=== PATIENT | female | born 1925 | race Caucasian/White ===

== ENCOUNTER 2016-05-24 12:34 | Inpatient (IN) | payer MEDICARE ==
[~2016-05-24] VITALS: Ht 152.4 cm; Wt 52.7 kg
--- NOTE | 2016-05-24 12:40 | NUR ---
PT ARRIVES TO ED IN STABLE CONDITION VIA EMS. PT ALERT AND ORIENTED TO SELF AND PLACE BUT NOT TIME, REPEATEDLY ASKING, "WHAT HAPPENED? DID I PASS OUT OR SOMETHING?". DR KENNEY NOTIFIED OF PT STATUS.
[2016-05-24 13:19] LABS: HEMATOCRIT 37.6 % (37.0-47.0); HEMOGLOBIN 12.7 g/dl (12.0-16.0); IMMATURE GRANULOCYTES 0.2 % (0.0-1.0); MEAN CELL VOLUME 86.2 fL CALC (80.0-100.0); MEAN CORPUSCULAR HGB 29.1 pG CALC (26.0-32.0); MEAN CORPUSCULAR HGB CONC 33.8 g/L CALC (32.0-36.0); NEUT# 3.19 thou/uL (2.00-7.15); RED BLOOD COUNT 4.36 mill/uL (4.20-5.60); RED CELL DISTRI WIDTH 13.1 % (11.5-15.5)
[2016-05-24 13:32] LABS: ALBUMIN 4.4 g/dL (3.2-5.0); ALKALINE PHOSPHATASE 89 u/l (38-126); ANION GAP 18 (6-22 (CALC)); BILIRUBIN, TOTAL 1.2 mg/dL (0.0-1.4); BUN 15 mg/dL (8-23); BUN/CREATININE RATIO 15 (12-20 (CALC)); CALCIUM 9.2 mg/dL (8.4-10.2); CARBON DIOXIDE 23 mmol/l (22-30); CHLORIDE 102 mmol/l (95-108); GFR 52 ML/MIN (>=60 (CALC)); GFR FOR AFR.AMER. > 60 ML/MIN (>=60 (CALC)); GLUCOSE 138 mg/dL (82-115); POTASSIUM 3.7 mmol/l (3.5-5.1); SGOT/AST 20 u/l (9-36); SGPT/ALT 30 u/l (11-66); SODIUM 140 mmol/l (137-146); TOTAL PROTEIN 7.8 g/dL (6.3-8.2)
[2016-05-24 13:44] LABS: MYOGLOBIN 34 ng/mL (0 - 62)
--- NOTE | 2016-05-24 14:03 | NUR ---
PATIENT RESTING AWAITING RESULKTS FROM RADIOLOGY AND LAB PATIENT DENIES ANY PAIN AT THIS TIME
--- NOTE | 2016-05-24 15:03 | NUR ---
NATALYAR PRINTED TO [id number] AT [id number]
--- NOTE | 2016-05-24 16:01 | NUR ---
REPORT CALLED TO MED SURG
--- NOTE | 2016-05-24 16:10 | NUR ---
PT ARRIVED TO FLOOR AT THIS TIME VIA [facility] ACCOMPANIED BY MOI PERRY; PT AMB TO SCALE AND TO BED WITH STEADY GAIT; PT ORIENTED TO ROOM AND CALL LIGHT SYSTEM; ASSESSMENT COMPLETED AT THIS TIME; PT ORIENTED X3; POOR HISTORIAN FOR MEDICAL HX; SPOUSE AT BEDSIDE; PT DENIES ANY PAIN, DISCOMFORT OR DIZZINESS AT THIS TIME; BED ALARM IN PLACE FOR PT SAFETY; #20 EMS TO RAC FLUSHED; SITE APPEARS HEALTHY; PT DENIES ANY OTHER NEEDS AT THIS TIME; TELE IN PLACE; CALL LIGHT WITHIN REACH; WILL CONTINUE TO MONITOR
[2016-05-24 16:24] VITALS: BP 164/72
--- NOTE | 2016-05-24 19:00 | NUR ---
PT. IS ASSISTED TO THE BATHROOM AND BACK INTO BED WITH MINIMAL ASSISTANCE. PT. REPORTS VERY MINIMAL DIZZINESS WITH AMBULATION. ASSESSMENT COMPLETED. IV SITE PATENT AND INFUSING ORDERED IVF @75ML/HR. BED ALARM REATTACHED FOR SAFETY PRECAUTIONS. PT. ENCOURAGED TO USE CALL FOR ALL NEEDS AND EVERYTIME FOR OOB NEEDS, VERBALIZES UNDERSTANDING. CALL LIGHT IS IN REACH. WILL CONTINUE TO MONITOR.
[2016-05-24 19:47] VITALS: BP 137/69
[2016-05-24 23:38] VITALS: BP 125/76
--- NOTE | 2016-05-24 23:40 | NUR ---
PT. IS RESTING IN BED WITH NO DISTRESS NOTED. VSS. ASSISTED PT. TO THE BATHROOM AND BACK INTO BED. SCHED MED GIVEN. UA OBTAINED PER ORDER. CALL LIGHT IS IN REACH. BED ALARM REPLACED.
[2016-05-25] VITALS (8 sets, daily range): BP systolic 120–153; BP diastolic 59–79
[2016-05-25 00:14] LABS: URINE BILIRUBIN - DIPSTICK NEGATIVE (NEGATIVE); URINE BLOOD DIPSTICK TRACE-INTACT (NEGATIVE); URINE CLARITY CLEAR; URINE COLOR YELLOW; URINE GLUCOSE - DIPSTICK NEGATIVE (NEGATIVE); URINE KETONE NEGATIVE (NEGATIVE); URINE NITRITE - DIPSTICK NEGATIVE (Negative); URINE PROTEIN - DIPSTICK NEGATIVE (NEG-TRACE)
[2016-05-25 00:19] LABS: BARBITURATES NEGATIVE (NEGATIVE); COCAINE NEGATIVE (NEGATIVE); METHADONE NEGATIVE (NEGATIVE); OXCYCODONE NEGATIVE (NEGATIVE); TETRAHYDROCANNABIONOL NEGATIVE (NEGATIVE); TRICYLIC ANTIDEPRESSANTS NEGATIVE (NEGATIVE)
[2016-05-25 00:25] LABS: URINE LEUK ESTERASE SMALL (NEGATIVE)
[2016-05-25 00:26] LABS: URINE SQUAMOUS EPITHELIAL CELL RARE EPI/hpf (0-FEW)
--- NOTE | 2016-05-25 03:20 | NUR ---
PT. HAD WOKE UP AND FORGET HOW SHE GOT TO THE HOSPITAL AND WHY, PT. REORIENTED EASILY. PT. REPORTS IT IS NOT ABNORMAL FOR HER TO BE FORGETFUL AT NIGHT. VS OBTAINED. BED ALARM IN PLACE. CALL LIGHT IS IN REACH. WILL CONTINUE TO MONITOR.
[2016-05-25 05:39] LABS: ANION GAP 15 (6-22 (CALC)); BUN 12 mg/dL (8-23); BUN/CREATININE RATIO 14 (12-20 (CALC)); CALCIUM 9.1 mg/dL (8.4-10.2); CARBON DIOXIDE 26 mmol/l (22-30); CHLORIDE 106 mmol/l (95-108); CREATININE 0.8 mg/dL (0.5-1.0); GFR > 60 ML/MIN (>=60 (CALC)); GFR FOR AFR.AMER. > 60 ML/MIN (>=60 (CALC)); GLUCOSE 167 mg/dL (82-115); MAGNESIUM 1.9 mg/dL (1.6-2.3); POTASSIUM 4.5 mmol/l (3.5-5.1); SODIUM 143 mmol/l (137-146)
--- NOTE | 2016-05-25 07:07 | NUR ---
REPORT RECIEVED FROM MOI ROJAS; PT RESTING IN BED WITH EYES CLOSED; NO S/S OF DISTRESS NOTED; FALL PRECAUTIONS IN PLACE; BED ALARM IN PLACE FOR PT SAFETY; CALL LIGHT WITHIN REACH; WILL CONTINUE TO MONITOR
--- NOTE | 2016-05-25 12:34 | NUR ---
PT SITTING UP IN BED FOR LUNCH; NO S/S OF DISTRESS NOTED; SPOUSE AT BEDSIDE; PT DENIES ANY DIZZINESS AT THIS TIME; PT ENCOURAGED TO CALL FOR ASSISTANCE; CALL LIGHT WITHIN REACH; WILL CONTINUE TO MONITOR
--- NOTE | 2016-05-25 15:46 | NUR ---
PT RESTING IN BED WITH EYES CLOSED; NO S/S OF DISTRESS NOTED; TELE IN PLACE; CALL LIGHT WITHIN REACH; WILL CONTINUE TO MONITOR
--- NOTE | 2016-05-25 20:00 | NUR ---
PT RESTING IN SEMI FOWLERS POSITION;PT DENIES ANY PAIN OR DISCOMFORTS;ASSESSMENT COMPLETED;EMS IV SITE TO RFA FLUSHED AND PATENT;PT EDUCATED ON THE EXPIRATION DATE OF EMS SITES AND AGREES TO HAVE SITE CHANGED IN THE MORNING;PT A&O X3;TELE MONITOR IN PLACE READING SR 88;SKIN INTACT;PT REFUSED TEDS AT THIS TIME;PT RE-ORIENTED TO ROOM AND CALL LIGHT SYSTEM AND VERBALIZES UNDERSTANDING;BED ALARM ON;SAFETY PRECAUTIONS REINFORCED;PT DENIES ANY OTHER NEEDS AT THIS TIME;BED IN LOWEST POSITION WITH CALL LIGHT IN REACH;WILL CONTINUE TO MONITOR
--- NOTE | 2016-05-26 00:15 | NUR ---
PT APPEARS TO BE SLEEPING AT THIS TIME;NO S/S OF DISTRESS NOTED;RESPIRATIONS EVEN AND UNLABORED ON RA;TELE MONITOR IN PLACE;BED ALARM ON AND COMMODE AT BEDSIDE;CALL LIGHT WITHIN REACH;WILL CONTINUE TO MONITOR
[2016-05-26 00:25] VITALS: BP 136/62
[2016-05-26 04:40] VITALS: BP 146/77
--- NOTE | 2016-05-26 05:25 | NUR ---
PT RESTING IN SUPINE POSITION;EMS SITE TO RFA REMOVED WITH CATHETER INTACT DUE TO EXPIRATION DATE;NEW #20 STARTED TO RIGHT HAND;FLUSHED AND PATENT;PT DENIES ANY OTHER NEEDS AT THIS TIME;PT TOLD TO CALL FOR ASSISTANCE IF NEEDED;BED IN LOWEST POSITION WITH CALL LIGHT IN REACH;WILL CONTINUE TO MONITOR
[2016-05-26 05:51] LABS: ANION GAP 11 (6-22 (CALC)); BUN 14 mg/dL (8-23); BUN/CREATININE RATIO 20 (12-20 (CALC)); CALCIUM 7.2 mg/dL (8.4-10.2); CALCULATED LDLCHOLESTEROL 61 mg/dL (62-129 (CALC)); CARBON DIOXIDE 21 mmol/l (22-30); CHLORIDE 113 mmol/l (95-108); CREATININE 0.7 mg/dL (0.5-1.0); GFR > 60 ML/MIN (>=60 (CALC)); GFR FOR AFR.AMER. > 60 ML/MIN (>=60 (CALC)); GLUCOSE 98 mg/dL (82-115); HDL CHOLESTEROL 42 mg/dL (>=40); POTASSIUM 3.1 mmol/l (3.5-5.1); SODIUM 142 mmol/l (137-146); TOTAL CHOLESTEROL 114 mg/dl (0-199); TOTAL TRIGLYCERIDES 55 mg/dl (30-149); VLDL CHOLESTROL 11 mg/dl (0-48 (CALC))
--- NOTE | 2016-05-26 08:17 | NUR ---
PHYSICAL THERAPY IN WITH PT
[2016-05-26 08:56] VITALS: BP 154/54
--- NOTE | 2016-05-26 09:54 | NUR ---
DR. CUTLER IN TO SEE PT; PLAN OF CARE DISCUSSED
--- NOTE | 2016-05-26 13:00 | NUR ---
PT SITTING IN CHAIR VISITING WITH SPOUSE; STATES SHE FEELS BETTER AND WOULD LIKE TO GO HOME; WILL NOTIFY MD; CALL ALTMAN WITHIN REACH; WILL CONTINUE TO MONITOR.
[2016-05-26 13:24] VITALS: BP 144/66
[2016-05-26 15:50] VITALS: BP 153/65
[2016-05-26] MEDS ORDERED: METFORMIN500 MG PO (16:41)
[2016-05-26] MEDS ORDERED: LOSARTAN POT50 MG PO (16:41)
[2016-05-26] MEDS ORDERED: ARICEPT5 MG PO (16:41)
[2016-05-26] MEDS ORDERED: AMLODIPINE5 MG PO (16:41)
[2016-05-26] MEDS ORDERED: ATORVASTATIN CA40 MG PO (16:42)
[2016-05-26] MEDS ORDERED: ANTIVERT PO (16:47)
[2016-05-26] MEDS ORDERED: PREDNISONE20 MG PO (16:47)
[2016-05-26] MEDS ORDERED: SG ASA LOW81 M1 PO (16:47)
--- NOTE | 2016-05-26 17:53 | NUR ---
Discharge instructions given. Patient verbalizes understanding of same. Discharged in stable condition via Wheelchair to Home with family. All belongings sent with pt.
== END 2016-05-26 17:53 | disposition home or self-care (01) | DRG 149 ==
LOC: ENPENDDIS → ED 12:34 → ED-I 14:42 → ED 14:57 → MS2 14:58
PROVIDERS: Emergency Medicine; ADMIT Internal Medicine; ATTEND Internal Medicine
DX: H81.20 Vestibular neuronitis, unspecified ear (principal); E11.9 Type 2 diabetes mellitus without complications; G30.9 Alzheimer's disease, unspecified; I10 Essential (primary) hypertension; F02.80 Dementia in other diseases classified elsewhere, unspecified severity, without behavioral disturbance, psychotic disturbance, mood disturbance, and anxiety; E78.5 Hyperlipidemia, unspecified
CPT/HCPCS: G0378